=== PATIENT | female | born 1975 | race Hispanic/Latino ===

== ENCOUNTER → 2019-09-11 | Day surgery (SDC) | payer OTHER ==
[~2019-09-11] MED LIST: BP MED PO; FENTANYL CITRATE/PF 100MCG/2 ML INJ ONE; METOCLOPRAMIDE HCL 10 MG/2ML VIAL ONE; MIDAZOLAM HCL 2 MG/2 ML VIAL ONE; ONE DAILY FOR1 EACH PO; PANTOPRAZOLE 40 MG 10ML VIAL ONE; PAROXETINE HCL20 MG PO; PROPOFOL IV EMULSION 10 MG/ML 50 ML VIAL ONE; SODIUM CHLORIDE 0.9% INJ 10 ML VIAL ONE; VITAMIN D400 UNIT PO
[2019-09-11 15:13] VITALS: BP 108/70
--- NOTE | 2019-09-11 21:09 | Operative Report ---
DATE OF PROCEDURE: 09/11/2019 SURGEON: Chrisot Pressley MD PROCEDURE: Esophagogastroduodenoscopy with biopsies. INDICATIONS FOR EGD: Upper abdominal pain, bloating. MEDICATIONS: The patient was done under MAC, please see anesthesiologist's note. PROCEDURE IN DETAIL: With the patient in left lateral decubitus position, a flexible fiberoptic Olympus gastroscope was introduced into the esophagus under direct visualization without any difficulty. There was some patchy erythema noted in the distal esophagus. Minute tongues of velvety red mucosa noted to extend proximally from the GE junction that was biopsied to rule out Szymanski's. The scope was then advanced with ease into the stomach. Mucosa overlying the antrum and the body revealed some patchy erythema and low-grade to moderate edema and biopsies were obtained and sent to stain for H pylori. Pylorus was of normal contour and shape, it was intubated with ease and the scope was advanced all the way to the second portion of the duodenum. Biopsies were obtained from the proximal second portion and the duodenal bulb to rule out sprue. The scope was then withdrawn back into the stomach and retroflexed, mucosa overlying the fundus and the cardia appeared to be within normal limits. The scope was then straightened out, it was subsequently withdrawn. The patient tolerated the procedure well. IMPRESSION: 1. Distal esophagitis, mild. 2. Rule out Szymanski's. 3. Gastritis, biopsied, biopsies sent to stain for Helicobacter pylori. 4. Rule out sprue. PLAN: Follow up histology. Initiate Protonix 40 mg one p.o. q.a.m. a.c. Christo Pressley MD [facility] [place] /[id number] cc: Jairo Biggs
--- OUTSIDE RECORDS SUMMARY | 2019-09-13 13:55 | XMS REPORT ---
Author Author [facility] Address Unknown Phone Unavailable Care Team Providers Care Heeler Machine Name Role Phone Unavailable Unavailable Problems This patient has no known problems. Allergies, Adverse Reactions, Alerts This patient has no known allergies or adverse reactions. Medications This patient has no known medications. Results Test Description Test Time Test Comments Text Results Atomic Results Result Comments XR Chest 2 Views 2018-03-06 13:12:57 Patient: HÉCTOR GARDNER Date/Time03/06/2018 12:59 CDTReason for ExamOther (please specify)ReportHISTORY: PreopLocation code: [id number]: 2 VIEW CHEST X-RAY.COMPARISON: NoneCOMMENT: PA and lateral views are provided. No acute infiltrate or effusion is seen. Cardiomediastinal silhouette is within normal limits. Deformity of the right clavicle suggests an old fracture. No acute bony abnormalities.IMPRESSION: No acute cardiopulmonary disease. Final Dictated by: Mahi Garcia LDictated DT/TM: 03/06/2018 1:10 pmSigned by: Mahi Garcia LSigned (Electronic Signature): 03/06/2018 1:12 pm
== END | disposition home or self-care (01) ==
LOC: OR 09:45
PROVIDERS: ATTEND Internal Medicine Gastroenterology
DX: K20.9 Esophagitis, unspecified (principal); K29.70 Gastritis, unspecified, without bleeding; Z01.810 Encounter for preprocedural cardiovascular examination; I10 Essential (primary) hypertension; Z68.25 Body mass index [BMI] 25.0-25.9, adult; Z90.49 Acquired absence of other specified parts of digestive tract
CPT/HCPCS: 43239; 93005; C9113; J2250; J2704; J2765; J3010